=== PATIENT | female | born 1955 | race Caucasian/White ===

== ENCOUNTER → 2017-10-07 | Outpatient (CLI) | payer BC ==
[~2017-10-07] MED LIST: HYDROCODONE BIT1 T11 PO; IMITREX100 MG PO
== END | disposition home or self-care (01) ==
LOC: MAMMO 08:47
DX: Z12.31 Encounter for screening mammogram for malignant neoplasm of breast (principal)

== ENCOUNTER → 2023-06-29 | Day surgery (SDC) | payer MEDICARE ==
[~2023-06-29] VITALS: Ht 170.1 cm; Wt 82.6 kg
[~2023-06-29] MED LIST changes: +ASPIRIN ADULT L81 M2 PO; +ASPIRIN ENTERIC COATED 81 MG TAB PO SCH; +Lactated Ringer's Solution 1,000 ML IV ONE; +Midazolam Hydrochloride 2 MG/2 ML VIAL IV ONE; +Ondansetron Hydrochloride 4 MG/2 ML VIAL IV ONE; +PROPOFOL 200 MG/20 ML VIAL IV ONE; +SUMATRIPTAN SUCCINATE 100 MG TAB PO SCH
[2023-06-29 09:01] VITALS: BP 136/72
[2023-06-29 10:15] VITALS: BP 133/68
[2023-06-29 10:30] VITALS: BP 145/64
[2023-06-29 10:46] VITALS: BP 143/70
== END | disposition home or self-care (01) ==
LOC: SDC 06-25 11:00
PROVIDERS: ATTEND Surgery
DX: Z12.11 Encounter for screening for malignant neoplasm of colon (principal); G43.909 Migraine, unspecified, not intractable, without status migrainosus; Z90.710 Acquired absence of both cervix and uterus; Z90.89 Acquired absence of other organs; Z90.49 Acquired absence of other specified parts of digestive tract; Z98.51 Tubal ligation status; Z87.891 Personal history of nicotine dependence; Z98.890 Other specified postprocedural states; Z79.82 Long term (current) use of aspirin; Z79.899 Other long term (current) drug therapy; Z88.8 Allergy status to other drugs, medicaments and biological substances; Z80.0 Family history of malignant neoplasm of digestive organs